=== PATIENT | male | born 1975 | race Caucasian/White ===

== ENCOUNTER 2018-08-06 01:55 | Inpatient (IN) | payer OTHER ==
[2018-08-06] MEDS ORDERED: DOCUSATE SODIUM 100 MG CAP PO (03:30)
[2018-08-06] MEDS ORDERED: ONDANSETRON 4 MG INJ IV (03:30)
[2018-08-06] MEDS ORDERED: BISACODYL (EC) 5 MG TAB PO (03:30)
[2018-08-06] MEDS ORDERED: NACL 0.9% 3 ML SYG IV (03:30)
[2018-08-06 03:46] LABS: ADD MAN DIFF? NO
[2018-08-06] MEDS: SOD CHLORIDE 0.9% 1,000 ML IV ×2 (04:04→11:24)
[2018-08-06 04:07] LABS: INR 0.93; PROTIME 12.6 Sec (11.9-14.9)
[2018-08-06 04:08] LABS: PARTIAL THROMBOPLASTIN TIME 28.8 Sec (23.0-35.0)
[2018-08-06 04:16] LABS: ALANINE AMINOTRANSFERASE 102 IU/L (13-69); ALBUMIN 3.8 g/dl (3.3-4.9); ALKALINE PHOSPHATASE 52 IU/L (42-121); ANION GAP 5 (5-13); ASPARTATE AMINO TRANSFERASE 95 IU/L (15-46); BILIRUBIN,INDIRECT 0.6 mg/dl (0-1.1); BILIRUBIN,TOTAL 0.6 mg/dl (0.2-1.3); BLOOD UREA NITROGEN 25 mg/dl (7-20); CALCIUM 9.1 mg/dl (8.4-10.2); CARBON DIOXIDE 29 mmol/L (21-31); CHLORIDE 106 mmol/L (97-110); CREATININE 1.06 mg/dl (0.61-1.24); Estimated GFR > 60 mL/min (>60); GLUCOSE 94 mg/dl (70-220); MAGNESIUM 1.8 mg/dl (1.7-2.5); POTASSIUM 4.9 mmol/L (3.5-5.1); SODIUM 140 mmol/L (135-144); TOTAL PROTEIN 6.5 g/dl (6.1-8.1)
[2018-08-06 04:21] LABS: BASOPHILS % 0.7 % (0.0-2.0); EOSINOPHILS # 0.1 10^3/ul (0.0-0.5); EOSINOPHILS % 1.9 % (0.0-7.0); HEMATOCRIT 38.8 % (42.0-52.0); LYMPHOCYTES # 1.3 10^3/ul (0.8-2.9); LYMPHOCYTES % 22.1 % (15.0-51.0); MEAN CORPUSCULAR HGB CONC 33.5 g/dl (32.0-37.0); MEAN CORPUSCULAR VOLUME 92.4 fl (82.0-101.0); MEAN PLATELET VOLUME 10.7 fl (7.4-10.4); MONOCYTE # 0.7 10^3/ul (0.3-0.9); MONOCYTES % 12.3 % (0.0-11.0); NEUTROPHIL # 3.5 10^3/ul (1.6-7.5); NEUTROPHILS % 62.3 % (39.0-77.0); PLATELET COUNT 173 10^3/UL (140-415); RED CELL DISTRIBUTION WIDTH 12.7 % (11.5-14.5)
[2018-08-06 04:21] LABS: WHITE BLOOD COUNT 5.7 10^3/ul (4.8-10.8)
[2018-08-06] MEDS: ACETAMINOPHEN 325 MG TAB PO (05:07)
[2018-08-06] MEDS: TAMSULOSIN (SR) 0.4 MG CAP PO (05:19)
[2018-08-06] MEDS: HYDROmorphONE 0.5 MG/0.5 ML SYG IV (10:13)
== END 2018-08-06 13:50 | disposition home or self-care (01) | DRG 694 ==
LOC: 2NE 01:55
DX: N13.2 Hydronephrosis with renal and ureteral calculous obstruction (principal); N17.9 Acute kidney failure, unspecified; Z87.442 Personal history of urinary calculi
CPT/HCPCS: 71045; 74018; 80053; 83735; 85025; 85610; 85730; 93005